=== PATIENT | male | born 1990 | race Two or more races ===

== ENCOUNTER 2019-04-13 11:12 | Emergency (ER) | payer OTHER ==
[~2019-04-13] VITALS: Ht 167.6 cm; Wt 108.9 kg
[2019-04-13 11:21] VITALS: BP 125/87
--- NOTE | 2019-04-13 11:38 | NUR ---
PT TO RADIOLOGY FOR HEAD AND FACIAL CT SCAN VIA [facility].
--- NOTE | 2019-04-13 12:19 | NUR ---
BILAT EYE IRRIGATED WAS PEPPER SPRAYED STATES WORST TO R EYE. PT TOLERATED PROCEDURE WELL.
== END 2019-04-13 12:55 ==
LOC: ER 11:13
DX: S09.8XXA Other specified injuries of head, initial encounter (principal); H10.33 Unspecified acute conjunctivitis, bilateral; R51 Headache; M54.9 Dorsalgia, unspecified; G89.29 Other chronic pain; F17.200 Nicotine dependence, unspecified, uncomplicated; Y08.89XA Assault by other specified means, initial encounter; Y93.89 Activity, other specified; Y92.89 Other specified places as the place of occurrence of the external cause; Y99.8 Other external cause status
CPT/HCPCS: 70450-TC; 70486-TC